=== PATIENT | female | born 1975 | race African-American/Black ===

== ENCOUNTER 2019-03-09 15:14 | Emergency (ER) | payer SELFPAY ==
[~2019-03-09] VITALS: Ht 167.6 cm; Wt 77.0 kg
[~2019-03-09 15:14] MED LIST: CEPH500C2; IBUPROFEN
[2019-03-09] MEDS ORDERED: KETOROLAC 30MG/ML VIAL IM ONE (19:15)
[2019-03-09] MEDS ORDERED: DIAZEPAM 5 MG TABLET PO ONE (19:15)
[2019-03-09 19:41] VITALS: BP 125/72
== END 2019-03-09 21:14 | disposition home or self-care (01) ==
LOC: ER 15:14
DX: R07.89 Other chest pain (principal); F17.200 Nicotine dependence, unspecified, uncomplicated; Z98.890 Other specified postprocedural states; Z79.899 Other long term (current) drug therapy; V89.2XXA Person injured in unspecified motor-vehicle accident, traffic, initial encounter; Y93.89 Activity, other specified; Y92.89 Other specified places as the place of occurrence of the external cause; Y99.8 Other external cause status
CPT/HCPCS: 71045; 93005; 96372; 99284; J1885